=== PATIENT | female | born 2000 | race African-American/Black ===

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

== ENCOUNTER 2023-05-18 11:07 | Emergency (ER) | payer MEDICAID, OTHER ==
[~2023-05-18] VITALS: Ht 157.5 cm; Wt 124.0 kg
[2023-05-18] MEDS ORDERED: SODIUM CHLORIDE 0.9% 1,000 ML IVB ONE (12:00)
[2023-05-18] MEDS ORDERED: PANTOPRAZOLE 40 MG/10 ML VIAL INJ IV ONE (12:00)
[2023-05-18] MEDS ORDERED: PROCHLORPERAZINE EDISYLATE 5 MG/ML 2ML VIAL IV ONE (12:00)
[2023-05-18 12:02] LABS: Urine Bacteria FEW /hpf (None Seen); Urine Blood 3+ /uL (Negative); Urine Mucus MODERATE (None Seen); Urine Specific Gravity 1.026 (1.001-1.035); Urine WBC 39 /hpf (0 - 5)
[2023-05-18 12:28] LABS: Basophils # (auto) 0 10 ^3/uL (0-0.2); Basophils % (auto) 0.1 % (0.0-2.0); Eosinophils # (auto) 0 10 ^3/uL (0-0.8); Hematocrit 42.6 % (36.0-46.0); Hemoglobin 14.5 g/dL (12.2-16.2); Lymphocytes # (auto) 0.6 10 ^3/uL (0.4-5.4); Lymphocytes % (auto) 2.8 % (10.0-50.0); Mean Corpuscular Hemoglobin 31.6 pg (28.0-32.0); Mean Corpuscular Hgb Conc. 33.9 g/dL (32.0-36.0); Mean Corpuscular Volume 93.1 fL (80.0-100.0); Monocytes # (auto) 0.6 10 ^3/uL (0-1.3); Monocytes % (auto) 2.4 % (0.0-12.0); Neutrophils # (auto) 22.3 10 ^3/uL (1.6-8.6); Neutrophils % (auto) 94.7 % (37.0-80.0); Nucleated Red Blood Cells % 0.1 %; Red Blood Cells 4.58 10^6/uL (4.0-5.20); Red Cell Distribution Width 13.4 % (11.8-14.3); White Blood Cell 23.5 10^3/uL (4.4-10.8)
[2023-05-18 12:59] LABS: Albumin 3.9 g/dL (3.4-5.0); Calcium 9.4 mg/dL (8.5-10.1); Potassium 3.4 mmol/L (3.5-5.1)
[2023-05-18 13:05] LABS: BUN/Creatinine Ratio 7.5 (10.0-20.0); Bilirubin, Total 0.7 mg/dL (0.2-1.0); Total Protein 7.9 g/dL (6.4-8.2)
[2023-05-18] MEDS ORDERED: MORPHINE SULFATE 4 MG/ML SYR/VIAL IV ONE (13:45)
[2023-05-18] MEDS ORDERED: cefTRIAXone 1GM/50ML D5W 50 ML IV ONE (14:15)
[2023-05-18] MEDS ORDERED: CIPR-173 PO (14:29)
[2023-05-18] MEDS ORDERED: PANT40TA2 PO (14:31)
[2023-05-18] MEDS ORDERED: ZOFR4T PO (14:31)
[2023-05-18 16:17] VITALS: BP 112/70; PULSE 74; RESP 19; TEMP 98.4; O2SAT 99
== END 2023-05-18 16:18 | disposition home or self-care (01) ==
LOC: ER 11:07
DX: N39.0 Urinary tract infection, site not specified (principal); F12.188 Cannabis abuse with other cannabis-induced disorder; D72.829 Elevated white blood cell count, unspecified; R10.2 Pelvic and perineal pain
CPT/HCPCS: 36415; 74176; 80053; 81001; 83690; 84702; 85025; 96361; 96365; 96375; 99285; C9113; J0696; J0780; J2270; J7030